=== PATIENT | female | born 2000 | race Caucasian/White ===

== ENCOUNTER 2025-01-28 17:25 | Emergency (ER) | payer MEDICAID, OTHER ==
[2025-01-28 17:46] VITALS: BP 158/83
[2025-01-28 17:49] VITALS: PULSE 104
== END 2025-01-28 20:00 | disposition home or self-care (01) ==
LOC: JP.ED 17:25
DX: S82.841A Displaced bimalleolar fracture of right lower leg, initial encounter for closed fracture (principal); E66.9 Obesity, unspecified; Z68.43 Body mass index [BMI] 50.0-59.9, adult; W00.0XXA Fall on same level due to ice and snow, initial encounter
CPT/HCPCS: 29515; 73610-26-RT; 73610-RT; 99283; 99283-25